=== PATIENT | female | born 1990 | race Two or more races ===

== ENCOUNTER 2024-10-15 18:41 | Emergency (ER) | payer OTHER ==
[~2024-10-15] VITALS: Ht 162.6 cm; Wt 84.8 kg
[2024-10-15 19:03] VITALS: BP 134/74; PULSE 70; RESP 18; TEMP 97.7; O2SAT 100
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
[2024-10-15] MEDS: KETOROLAC TROMETH 60MG/2ML VIAL IM ONE (19:41)
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
[2024-10-15] MEDS ORDERED: TIZA-142 PO (20:05)
[2024-10-15] MEDS ORDERED: IBUP-1456 PO (20:05)
== END 2024-10-15 20:17 | disposition home or self-care (01) ==
LOC: ER 18:41
DX: S29.012A Strain of muscle and tendon of back wall of thorax, initial encounter (principal); S13.4XXA Sprain of ligaments of cervical spine, initial encounter; S33.5XXA Sprain of ligaments of lumbar spine, initial encounter; G44.311 Acute post-traumatic headache, intractable; Z91.018 Allergy to other foods; V89.2XXA Person injured in unspecified motor-vehicle accident, traffic, initial encounter; Y93.89 Activity, other specified; Y92.410 Unspecified street and highway as the place of occurrence of the external cause; Y99.8 Other external cause status
CPT/HCPCS: 72040; 72070; 72100; 96372; 99284; J1885